=== PATIENT | male | born 1965 | race Caucasian/White ===

== ENCOUNTER 2017-01-07 11:36 | Emergency (ER) | payer MEDICAID ==
[~2017-01-07] VITALS: Ht 175.3 cm; Wt 90.0 kg
[2017-01-07 12:07] VITALS: BP 136/86
[2017-01-07] MEDS ORDERED: TETANUS AND DIPHTHERIA TOX/PF 0.5ML SYR (ADULT) IM ONE (12:30)
[2017-01-07] MEDS ORDERED: GELATIN SPONGE,ABSORBABLE SZ 100 TOP ONE (12:30)
== END 2017-01-07 13:51 | disposition home or self-care (01) ==
LOC: ER 13:12
DX: S61.012A Laceration without foreign body of left thumb without damage to nail, initial encounter (principal); W45.8XXA Other foreign body or object entering through skin, initial encounter; Y93.89 Activity, other specified; Y99.9 Unspecified external cause status; Y92.89 Other specified places as the place of occurrence of the external cause
CPT/HCPCS: 12001; 90471; 90714; 99283